=== PATIENT | female | born 1995 | race Caucasian/White ===

== ENCOUNTER 2023-06-19 22:28 | Emergency (ER) | payer MEDICAID, SELFPAY ==
[2023-06-19 22:29] VITALS: BP 123/88; PULSE 119; RESP 15; TEMP 36.6; O2SAT 98; BMI 25.7
[2023-06-19 23:16] LABS: Basophils % 0.4 %; Eosinophils # 0.1 10^3/uL (0.0-0.8); Eosinophils % 0.7 %; Lymphocytes # 3.1 10^3/uL (0.8-4.8); Lymphocytes % 45.5 %; Mean Corpuscular HGB Conc 32.9 g/dL (30-55); Mean Corpuscular Hemoglobin 29.2 pg (27-33); Mean Corpuscular Volume 88.8 fl (85-98); Mean Platelet Volume 9.7 fL (7.4-10.4); Monocytes # 0.9 10^3/uL (0.2-0.9); Monocytes % 12.8 %; Neutrophils % 40.3 %; Nucleated Red Blood Cells % 0 %; Platelet Count 313 10^3/cmm (157-399); Red Blood Count 4.28 10^6/uL (3.85-5.65); Red Cell Distribution Width 13.1 % (12.1-15.1); White Blood Count 6.71 10^3/uL (3.29-11.43)
[2023-06-19 23:31] LABS: Alanine Aminotransferase 17 U/L (0-33); Alkaline Phosphatase 81 U/L (35-105); Anion Gap 13.8 (5-19); Aspartate Amino Transferase 19 U/L (0-32); Blood Urea Nitrogen 11 mg/dL (6-20); Calcium 8.5 mg/dL (8.5-10.5); Carbon Dioxide 26 mmol/L (22-29); Chloride 103 mmol/L (98-107); Creatinine Clr Calc Pharmacy 114.4131; Globulin 2.8 g/dL (1.3-4.6); Glomerular Filtration Rate 100.4 mL/min (90-130); Glucose 111 mg/dL (65-115); Osmolality Calculated 288 mOsm/kg (285-295); Potassium 3.8 mmol/L (3.5-5.1); Sodium 139 mmol/L (136-145); Total Bilirubin 0.2 mg/dL (0.15-1.2); Total Protein 6.8 g/dL (6.6-8.7)
[2023-06-19 23:32] LABS: Acetaminophen < 5.0 ug/mL (10-30); Alcohol Level < 10 mg/dL (0-10); Salicylate < 0.3 mg/dL (3-10)
[2023-06-20 00:42] LABS: Add Urine Microscopic? YES; Bilirubin Urine Neg (Negative); Blood Urine Neg (Negative); Glucose Urine UA Norm (Normal); Ketones Urine Negative (Negative); Leukocyte Esterase Urine 1+ (Negative); Nitrate Urine Negative (Negative); Protein Urine Neg (Negative); Specific Gravity, Urine 1.015 (1.005-1.030); Urine Appearance Clear (CLEAR); Urine Color Yellow (Yellow); Urobilinogen Urine Neg (Negative); pH Urine 6 (5-7)
[2023-06-20 00:43] LABS: RBC Urine 0-4 /hpf (0-2); Squamous Epithelial Cell Urine 0-4 /hpf (0-5)
[2023-06-20 00:44] LABS: Bacteria Urine TRACE /hpf; HCG Qualitative Urine. Negative (Negative)
[2023-06-20 00:47] LABS: Amphetamines Screen Urine Negative (Negative); Barbiturates Screen Urine Negative (Negative); Benzodiazepines Screen Urine Negative (Negative); Cocaine Screen Urine Negative (Negative); Opiate Screen Urine Negative (Negative); PCP Screen Urine Negative (Negative); THC Screen Urine Negative (Negative)
--- NOTE | 2023-06-20 02:06 | W.ED.PSYCHS ---
HPI - Psych General: Chief Complaint: Psychiatric Symptoms Stated Complaint: SI Time Seen by Provider: 06/19/23 22:57 History of Present Illness: 28-year-old female with a history of depression. She says that she was admitted to psychiatric facility last month. She also has a history of epilepsy. She presents with worsening thoughts of depression. She had a bland take all of her medication to end her life. She does not appear to be on any medication. She is not intoxicated. Review of Systems Const: Denies: fever(s), chills or body aches Eyes: Denies: change in vision Card: Denies: chest pain or palpitations Resp: Denies: dyspnea, productive cough, non-productive cough or wheezing GI: Denies: abdominal pain, nausea, vomiting, diarrhea or hematochezia : Denies: difficulty voiding Skin/Breast: Denies: rash Neuro: Denies: headache(s), weakness in extremities, dizziness or confusion Physical Exam Const: COMMON NORMALS: no acute distress GENERAL APPEARANCE: cooperative; not ill appearing and not frail appearing HENMT: COMMON NORMALS: normocephalic, atraumatic and Normal external nose present HEAD & SCALP: normocephalic and atraumatic FACE & SINUS: normal facial exam and face symmetric NOSE: Normal external nose present Eye: COMMON NORMALS: Equal, round and reactive pupils present and EOMs intact bilaterally PUPIL: Yes Equal, round and reactive pupils present Neck/C-Spine: GENERAL: Yes trachea midline Chest: CHEST: Yes Symmetrical chest wall rise Resp: COMMON NORMALS: normal respiratory effort, No retractions, No use of accessory muscles and clear to auscultation bilaterally AUSCULTATION: clear to auscultation bilaterally Cardio: COMMON NORMALS: regular rate and regular rhythm RATE: regular rate RHYTHM: regular rhythm GI: COMMON NORMALS: Normal to inspection, nondistended, normoactive bowel sounds present Extremity: COMMON NORMALS: no pedal edema Neuro: MONTY COMA SCALE: document GCS findings Monty coma scale eye opening: Spontaneous [place] coma scale verbal response: Orientated Monty coma scale motor response: Obey commands [place] coma scale total score: 15 SENSORY EXAM: Yes extremities (intact) Psych: COMMON NORMALS: speech normal SPEECH: Yes normal speech Skin: COMMON NORMALS: no rashes or lesions noted GENERAL SKIN EXAM: no rashes or lesions noted Course Vital Signs: Vital signs: Vital Signs Temperature 97.8 F 06/19/23 22:29 Pulse Rate 95 06/20/23 04:21 Respiratory Rate 14 06/20/23 04:21 Blood Pressure 105/71 06/20/23 04:21 Pulse Oximetry 99 06/20/23 04:21 Oxygen Delivery Me thod Room Air 06/19/23 22:29 MDM - Psych Medical Decision Making The patient is not intoxicated. No drug use. Medically, she is quite stable. CBC and BMP are normal. Liver enzymes are normal. We do not currently have a bed available at our facility for this patient. She is suicidal with a plan at this point. We will call other facilities to see if a bed is available. She has been accepted at a psychiatric facility in [place]. She will be transferred by EMS later today. She remains medically stable. Lab Data 06/19/23 23:06 06/19/23 23:06 Laboratory Results WBC 6.71 10^3/uL (3.29-11.43) 06/19/23 23:06 RBC 4.28 10^6/uL (3.85-5.65) 06/19/23 23:06 Hgb 12.50 g/dL (11.27-16.99) 06/19/23 23:06 Hct 38.0 % (36-47) 06/19/23 23:06 MCV 88.8 fl (85-98) 06/19/23 23:06 MCH 29.2 pg (27-33) 06/19/23 23:06 MCHC 32.9 g/dL (30-55) 06/19/23 23:06 RDW 13.1 % (12.1-15.1) 06/19/23 23:06 Plt Count 313 10^3/cmm (157-399) 06/19/23 23:06 MPV 9.7 fL (7.4-10.4) 06/19/23 23:06 Neut % (Auto) 40.3 % 06/19/23 23:06 Lymph % (Auto) 45.5 % 06/19/23 23:06 [place] % (Auto) 12.8 % 06/19/23 23:06 Eos % (Auto) 0.7 % 06/19/23 23:06 Baso % (Auto) 0.4 % 06/19/23 23:06 Neut # (Auto) 2.70 10^3/uL (1.8-7.7) 06/19/23 23:06 Lymph # (Auto) 3.1 10^3/uL (0.8-4.8) 06/19/23 23:06 [place] # (Auto) 0.9 10^3/uL (0.2-0.9) 06/19/23 23:06 Eos # (Auto) 0.1 10^3/uL (0.0-0.8) 06/19/23 23:06 Baso # (Auto) 0.0 10^3/uL (0.0-0.1) 06/19/23 23:06 Nucleated RBC % (auto) 0 % 06/19/23 23:06 Nucleated RBCs # 0.0 /100WBC 06/19/23 23:06 Sodium 139 mmol/L (136-145) 06/19/23 23:06 Potassium 3.8 mmol/L (3.5-5.1) 06/19/23 23:06 Chloride 103 mmol/L (98-107) 06/19/23 23:06 Carbon Dioxide 26 mmol/L (22-29) 06/19/23 23:06 Anion Gap 13.8 (5-19) 06/19/23 23:06 BUN 11 mg/dL (6-20) 06/19/23 23:06 Creatinine 0.7 mg/dL (0.5-0.9) 06/19/23 23:06 GFR Calculation 100.4 mL/min (90-130) 06/19/23 23:06 Glucose 111 mg/dL (65-115) 06/19/23 23:06 Calculated Osmolality 288 mOsm/kg (285-295) 06/19/23 23:06 Calcium 8.5 mg/dL (8.5-10.5) 06/19/23 23:06 Total Bilirubin 0.2 mg/dL (0.15-1.2) 06/19/23 23:06 AST 19 U/L (0-32) 06/19/23 23:06 ALT 17 U/L (0-33) 06/19/23 23:06 Alkaline Phosphatase 81 U/L (35-105) 06/19/23 23:06 Total Protein 6.8 g/dL (6.6-8.7) 06/19/23 23:06 Albumin 4.0 g/dL (3.5-5.2) 06/19/23 23:06 Globulin 2.8 g/dL (1.3-4.6) 06/19/23 23:06 HCG, Qual Negative (Negative) 06/20/23 00:29 Urine Color Yellow (Yellow) 06/20/23 00:29 Urine Appearance Clear (CLEAR) 06/20/23 00:29 Urine pH 6 (5-7) 06/20/23 00:29 Ur Specific Orange 1.015 (1.005-1.030) 06/20/23 00:29 Urine Protein Neg (Negative) 06/20/23 00:29 Urine Glucose (UA) Norm (Normal) 06/20/23 00:29 Urine Ketones Negative (Negative) 06/20/23 00:29 Urine Blood Neg (Negative) 06/20/23 00:29 Urine Nitrate Negative (Negative) 06/20/23 00:29 Urine Bilirubin Neg (Negative) 06/20/23 00:29 Urine Urobilinogen Neg mg/dL (Negative) 06/20/23 00:29 Ur Leukocyte Esterase 1+ (Negative) H 06/20/23 00:29 Urine RBC 0-4 /hpf (0-2) H 06/20/23 00:29 Urine WBC 5-10 /hpf (0-5) H 06/20/23 00:29 Ur Squamous Epith Cells 0-4 /hpf (0-5) H 06/20/23 00:29 Amorphous Sediment Not Reportable 06/20/23 00:29 Urine Bacteria Trace /hpf (NONE) 06/20/23 00:29 Salicylates < 0.3 mg/dL (3-10) L 06/19/23 23:06 Urine Opiates Screen Negative ng/mL (Negative) 06/20/23 00:29 Acetaminophen < 5.0 ug/mL (10-30) L 06/19/23 23:06 Ur Barbiturates Screen Negative ng/mL (Negative) 06/20/23 00:29 Ur Phencyclidine Scrn Negative ng/mL (Negative) 06/20/23 00:29 Ur Amphetamines Screen Negative ng/mL (Negative) 06/20/23 00:29 U Benzodiazepines Scrn Negative ng/mL (Negative) 06/20/23 00:29 Urine Cocaine Screen Negative ng/mL (Negative) 06/20/23 00:29 U Marijuana (THC) Screen Negative ng/mL (Negative) 06/20/23 00:29 Ethyl Alcohol < 10 mg/dL (0-10) 06/19/23 23:06 No radiology studies performed this visit Discharge Plan Discharge Patient Disposition: Xfer Psychiatric Hosp Clinical Impression: Suicidal ideation Condition: Stable Coding Level of Care Code ED Inspector Outside Production for Melinda Chapman
[2023-06-20 04:21] VITALS: BP 105/71; PULSE 95; RESP 14; O2SAT 99
== END 2023-06-20 07:53 ==
PROVIDERS: Emergency Provider Emergency Medicine
DX: R45.851 Suicidal ideations (principal)
CPT/HCPCS: 36415; 80053; 80306; 80307; 81001; 81025; 85025; 99285